=== PATIENT | male | born 1980 | race Caucasian/White ===

== ENCOUNTER → 2019-11-14 | Outpatient (CLI) | payer OTHER | END | disposition home or self-care (01) | LOC: ONCLAB 08:17 | PROVIDERS: ATTEND Internal Medicine Hematology & Oncology | DX: I82.509 Chronic embolism and thrombosis of unspecified deep veins of unspecified lower extremity (principal) | CPT/HCPCS: 81240; 81241; 85302; 85306; 85610; 86146; 86147 ==

== ENCOUNTER → 2019-11-23 | Outpatient (CLI) | payer OTHER ==
--- NOTE | 2019-11-23 16:09 | RAD ---
MR#: [id number] Date of Study: 11/23/2019 Ordering Physician: ESDRAS WOODARD, Referring Physician: SAMIRA SANTOS Tech: RT Patrick Young) (N) APPROVED REPORT Test Type: Exercise Stress Nurse/Tech: Yeni Thomason R.N. Test Indications: low testosterone, chest discomfort/palpitations Cardiac History: DM Medications: See Electronic Medical Record Medical History: See Electronic Medical Record Resting ECG: SR Resting Heart Rate: 75 bpm Resting Blood Pressure: 132/89mmHg Pretest Chest Pain: No chest pain Nurse/Tech Notes S1S2, lungs CTA Consent: The procedure was explained to the patient in lay terms. Informed consent was witnessed. Richard eout was entered into [employer]. History and Stress Test performed by RT Patrick Young) (N) Stress Symptoms Fatigue POST EXERCISE Reason for Termination: Reached target heart rate Target HR: Yes Max HR: 170 bpm 111% of Maximum Predicted HR: 152 bpm Exercise duration: 8:25 min:sec, 3 Stage Exercise capacity: 10METs Max Blood Pressure: 160/88mmHg Blood Pressure response to exercise: Normal blood pressure response during stress. Heart Rate response to exercise: wnl Chest Pain: No. Arrhythmia: No. ST Change: No. INTERPRETATION Stress EKG Conclusion: Baseline EKG showed sinus rhythm. No ischemic changes at peak stress. No arr hythmias. Imaging Protocol IMAGE PROTOCOL: Rest Tc-99m/stress Tc-99m 1 day Rest: Stress: Viability: Radiopharm.Tc99m CagbxriffPx50f Sestamibi Jgum30wKs 32.6mCi Duration 15min. 15min. Img Date 11/23/2019 11/23/2019 Inj-Img [id number]. 60min. Rest Admin Site:IV - Right HandAdministrator:RT Patrick Young)(N) Stress Admin Site: IV - Right HandAdministrator: RT Patrick Lenz)(N) STRESS DATA End Diast. Vol.140.0mlLVEDV index BSA58.0ml End Syst. Vol.71.0mlLVESV index BSA30.0ml Myocardial Cpyq910.0gEject. Mgedimxv90.0% Stress Scores Regional WT1.00Summed WT15.00 Regional WM0.00Summed WM10.00 Study quality was good. Left Ventricular size was Normal at Rest and Stress. Lung uptake was . Left Ventricular ejection fraction is 55%. The rest and stress images show normal perfusion, normal contraction and thickening. LV Perf. Quant 17 Seg. SSS0.00 17 Seg. SRS0.00 17 Seg. SDS0.00 Stress Defect Extent (% LAD)0.00Rest Defect Extent (% LAD)0.00Rev. Defect Extent (% LAD)0.00 Stress Defect Extent (% LCX) 0.00Rest Defect Extent (% LCX)0.00Rev. Defect Extent (% LCX)0.00 Stress Defect Extent (% RCA)0.00Rest Defect Extent (% RCA)0.00Rev. Defect Extent (% RCA)0.00 Stress Defect Extent (% MADDISON)0.00Rest Defect Extent (% MADDISON)0.00Rev. Defect Extent (% MADDISON)0.00 Conclusion 1. Treadmill exercise cardioisotope stress test did not show any evidence of ischemia or infarct. 2. Normal left ventricular systolic function with ejection fraction calculated at 55%. 3. Low risk for cardiac events. Signed by : Jeffery Sage, Electronically Approved : 11/23/2019 16:08:55
== END | disposition home or self-care (01) ==
LOC: NM 09:23
PROVIDERS: ATTEND Internal Medicine Cardiovascular Disease
DX: R07.9 Chest pain, unspecified (principal); E11.9 Type 2 diabetes mellitus without complications
CPT/HCPCS: 36415; 78452; 93017; A9500; 86146; 86147